=== PATIENT | male | born 1940 | race Caucasian/White ===

== ENCOUNTER 2019-02-19 09:12 | Outpatient (CLI) | payer MEDICARE ==
--- NOTE | 2019-02-19 10:00 | CT ---
CT OF THE CHEST WITHOUT CONTRAST: COMPARISON: 06/21/2018. HISTORY: Pulmonary nodule seen on prior examination. TECHNIQUE: Multiple contiguous axial images were obtained in a CT of the chest without contrast. Sagittal and c oronal reformats were performed. FINDINGS: Along the left major fissure, there is a 3 mm area of nodularity which likely represents an intrafiss ural lymph node. This is stable compared to the prior examination. No other pulmonary nodules are s een. Emphysematous changes are seen in the lungs. Scarring versus atelectasis is seen in both lung bases. No pneumothorax or pleural effusion are seen. No focal infiltrates are present. The heart is normal in size. Calcifications are seen in the coronary arteries. The patient is statu s post aortic valve replacement. No hilar or mediastinal lymphadenopathy appreciated on this limited noncontrast examination. Degenerative changes are seen in the spine. There is a large cyst emanating from the left kidney. C alcified gallstones are seen in the gallbladder. The other visualized subdiaphragmatic structures ar e unremarkable. IMPRESSION: 1. No suspicious pulmonary nodules identified. 2. Cholelithiasis. 3. Left renal cyst. POS: [facility]
== END 2019-02-19 09:13 | disposition home or self-care (01) ==
LOC: BICCT 09:12
PROVIDERS: ATTEND Internal Medicine
DX: R91.1 Solitary pulmonary nodule (principal); K80.20 Calculus of gallbladder without cholecystitis without obstruction; N28.1 Cyst of kidney, acquired
CPT/HCPCS: 71250